=== PATIENT | female | born 1990 | race Caucasian/White ===

== ENCOUNTER 2016-06-18 12:40 | Emergency (ER) | payer BC, OTHER ==
[2016-06-18 12:52] VITALS: BP 161/88
[2016-06-18 12:59] LABS: Urine Bilirubin Negative (NEGATIVE); Urine Ketone Negative (NEGATIVE); Urine Nitrite Negative (NEGATIVE); Urine Protein Negative (NEGATIVE); Urine Specific Gravity 1.025 SP.GR. (1.005-1.010); Urine Urobilinogen Normal (NORMAL)
[2016-06-18 13:03] LABS: Urine Blood 10 /ul (NEGATIVE)
[2016-06-18 13:08] LABS: Urine Appearance Slightly Cloudy; Urine Color Yellow
--- NOTE | 2016-06-18 13:08 | ERNOTE ---
Abdominal HPI - Narrative Date of Service: 06/18/16 - General Chief Complaint: Abdominal Pain Time Seen by Provider: 06/18/16 13:00 Source: patient Exam Limitations: no limitations - Immun/Allergies/Home Medications Immunizatons: IMMUNIZATION HX Immunizations Up to Date Yes History of Influenza Vaccine Yes Hx Pneumococcal Vaccination Yes Allergies/Adverse Reactions: Allergies No Known Allergies Allergy (Verified 06/18/16 12:52) Home Medications: HOME MEDICATIONS Vit#96/Ferrous Fum/FA [ S] 1 tab PO DAILY 09/09/12 [Last Taken 09/07/12 08:00 1 tab] Ibuprofen [Motrin] 800 mg PO Q6H PRN #0 tablet 09/11/12 [Last Taken Unknown] diphenhydrAMINE HCL [Benadryl] 25 mg PO HS PRN #0 capsule 09/11/12 [Last Taken Unknown] Nitrofurantoin/Nitrofuran Mac [Macrobid] 100 mg PO Q12H #20 cap 06/18/16 [Last Taken Unknown] QUEtiapine FUMARATE [Seroquel] 50 mg PO DAILY 06/18/16 [Last Taken Unknown] Venlafaxine HCl 25 mg PO DAILY 06/18/16 [Last Taken Unknown] Vortioxetine Hydrobromide [Trintellix] 20 mg PO DAILY 06/18/16 [Last Taken Unknown] metFORMIN HCL [Fortamet] 1,000 mg PO DAILY 06/18/16 [Last Taken Unknown] - History of Present Illness Narrative: CRAMPING STARTING LAST NIGHT AND THINKS SHE IS NEWLY ON HOME PREG TEST 2-3 DAYS AGO. NO BLEEDING REPORTED. LMP =20 MAY Review of Systems - Review of Systems Constitutional: Present: See HPI Gastrointestinal/Abdominal: Present: abdominal pain - LOWER CRAMPING. IN SUKPRAPUBIC AREA. DENIES UTI SX. All Other Systems: All systems neg except as marked - Patient's Past Medical History Patient History - Medical: No pertinent hx Patient History - Cardiac/Respiratory: No pertinent hx Patient History - Cancer: No Hx of Cancer Patient History - Surgical Procedures: No surgical history Patient History - Other: None LMP (females 10-50): 1 month LMP (Calendar): 05/20/16 - . - Social History Living Situations: home Psych History: Hx of Anxiety, Hx of Depression, Current tx/ever been on anti- depressants or anti-anxiety meds Smoking Status: Never smoker Alcohol Use: none Drug Use: none - Immunizations Immunizations Up to Date: Yes Hx Pneumococcal Vaccination: Yes History of Influenza Vaccine: Yes Physical Exam - Physical Exam General Appearance: Present: wd/wn, alert, no apparent distress - OBESE YOUNG LADY . SL ANXIOUS WITH VS WITH MILDLY ELEVATED BP AND HEART RATE. NO FEVER. Respiratory: Present: no respiratory distress, normal breath sounds, no accessory muscle use, chest nontender, lungs clear Cardiovascular/Chest: Present: regular rate, rhythm, no murmur, normal peripheral pulses Gastrointestinal/Abdominal: Present: normal bowel sounds, soft, no organomegaly , tenderness - IN SUPRAPUBIC AREA. Back Exam: Present: no vertebral tenderness Neurological Exam: Present: alert, oriented Skin Exam: Present: normal color, warm/dry ED Progress - Results and Orders Patient's Lab Results:: I have reviewed the patient's lab results. - URINE WITH + LEUKO AND INCREASED BACT THOUGH SHE ALSO SHOWS INCREASED EPIS, A CULTURE IS PENDING. Results and Orders: URINE SHOWS UTI LIKELY , SPILLING GLUC AND QUANT HCG ONLY 661 - Vital Signs Patient's Vital Signs:: I have reviewed the patient's vital signs. Vital Signs: Vital Signs 06/18/16 12:44 Temperature 36.6 C Pulse Rate 109 H Respiratory 14 Rate Blood Pressure 161/88 O2 Sat by Pulse 100 Oximetry - Progress/Reassessment Chief Complaint: Abdominal Pain Plan - Plan Plan: D/W DR SNEED AND HE WILL FOLLOWUP ON SUNDAY AND WANTS A REPEAT QUANT. HCG. Departure - Departure Clinical Impression: Suprapubic cramping, and not yet delivered in first trimester, Acute lower urinary tract infection Disposition: Home self-care Condition: Good Instructions: Care, and Urinary Tract Infection Additional Instructions: START THE MACRODANTIN DIRECTED. IT IS OK TO USE TYLENOL FOR CRAMPING. GET A REPEAT QUANTITATIVE HCG DONE AN OUTPATIENT ON SUNDAY AND APPOINTMENT TO RECHECK WITH YOUR OB DOCTOR. RETURN TO THE ER IF WORSE. Referrals: Tho Sneed DO [Primary Care Provider] - Prescriptions: Nitrofurantoin/Nitrofuran Mac [Macrobid] 100 mg PO Q12H #20 cap
[2016-06-18 13:09] LABS: Urine Bacteria 2+; Urine RBC 0-5 /hpf (0-5)
--- OUTSIDE RECORDS SUMMARY | 2016-06-18 13:12 | XMS REPORT | Continuity of Care Document ---
:1990 Author Organization [facility] ([facility]) Address [place] [address] Phone [phone] Care Team Providers Name Role Phone Marysol Savage Lpoez Primary Care Provider [phone] Source Comments This disclosure is being made pursuant to the Care Everywhere program, applicable federal and state laws, and may not contain all informaitonavailable regarding this patient.[facility] ([facility]) Active Allergies and Adverse Reactions Allergen Noted Date Severity Reactions Comments No Known Drug Allergies 06/02/2008 Current Medications Prescription Sig. Disp. Refills Start Date End Date Status NORGESTIMATE-ETHINYL take by mouth Active ESTRADIOL (ORTHO daily. TRI-CYCLEN, 28, PO) atenolol (TENORMIN) 25 Take 25 mg by mouth Active mg tablet daily. ACETAMINOPHEN (TYLENOL Take by mouth as Active PO) needed. BUPROPION HCL Take 1 Tab by mouth Active (WELLBUTRIN PO) daily. SERTRALINE HCL (ZOLOFT Take 150 mg by mouth Active PO) daily. 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 Social History Tobacco Use Types Packs/Day Years Used Date Never Smoker Alcohol Use Drinks/Week oz/Week Comments No used to drink Last Filed Vital Signs Vital Sign Reading Time Taken Blood Pressure 145/85 12/01/2013 12:57 PM CDT Pulse 78 12/01/2013 12:57 PM CDT Temperature 36.7 C (98.1 F) 12/01/2013 12:57 PM CDT Respiratory Rate 14 01/11/2010 12:05 PM [employer] Height 1.575 m (5' 2.01") 12/01/2013 12:57 PM CDT Weight 92.08 kg (203 lb) 12/01/2013 12:57 PM CDT Body Mass Index 37.12 12/01/2013 12:57 PM CDT Oxygen Saturation - - Plan of Care Health Maintenance Due Date Last Done Comments Hepatitis B Vaccine (1 of 3 - Primary Series) 1990 HPV Vaccine (1 of 3 - Female/Unknown 3 Dose Series) 08/09/2002 Tdap Vaccine 08/09/2002 Cervical Cancer Screening 08/09/2009 Lipid Disorder Screening 08/09/2009 MMR Vaccine 08/09/2009 Td Vaccine 08/09/2009 Varicella Vaccine (1 of 2 - Adult - No Evidence of 08/09/2009 Immunity) Influenza Vaccine: Seasonal (#1) 09/06/2015 Results from Last 3 Months Not on file
== END 2016-06-18 14:33 | disposition home or self-care (01) ==
LOC: ER 12:40
DX: R10.33 Periumbilical pain (principal); Z33.1 Pregnant state, incidental; O23.41 Unspecified infection of urinary tract in pregnancy, first trimester

== ENCOUNTER 2016-06-29 11:51 | Emergency (ER) | payer BC ==
[2016-06-29 14:04] LABS: Hematocrit 39.7 % (37.0-47.0); Hemoglobin 13.8 gm/dL (12.5-16.0); Mean Cell Volume 85.2 fl (78-100); Mean Corpuscular Hemoglobin 29.6 pg (27-31); Mean Corpuscular Hgb Conc 34.8 g/dl (32-36); Mean Platelet Volume 8.8 fl (6.0-9.5); Neutrophil # 7.3 K/mm3 (1.3-6.0); Neutrophil % 62.6 % (42-75.0); Platelet Count 419 K/mm3 (150-450); Red Blood Count 4.66 M/mm3 (4.2-5.4); Red Cell Distribution Width 12.2 % (11.5-14.0); White Blood Count 11.6 K/mm3 (4.0-10.5)
--- NOTE | 2016-06-29 14:25 | ERNOTE ---
ER Female HPI Date of Service: 06/29/16 Stated Complaint: POSSIBLE MISCARRIAGE Presenting Symptoms: vaginal bleeding Time Seen by Provider: 06/29/16 14:00 Source: patient, RN notes reviewed, past records Exam Limitations: no limitations Immunizations: IMMUNIZATION HX Immunizations Up to Date Yes History of Influenza Vaccine Yes Hx Pneumococcal Vaccination Yes Allergies/Adverse Reactions: Allergies No Known Allergies Allergy (Verified 06/29/16 12:16) Home Medications: HOME MEDICATIONS Vit#96/Ferrous Fum/FA [ S] 1 tab PO DAILY 09/09/12 [Last Taken 09/07/12 08:00 1 tab] diphenhydrAMINE HCL [Benadryl] 25 mg PO HS PRN #0 capsule 09/11/12 [Last Taken Unknown] QUEtiapine FUMARATE [Seroquel] 50 mg PO DAILY 06/18/16 [Last Taken Unknown] Venlafaxine HCl 25 mg PO DAILY 06/18/16 [Last Taken Unknown] metFORMIN HCL [Fortamet] 1,000 mg PO DAILY 06/18/16 [Last Taken Unknown] - History of Present Illness Narrative: Cari is a 25-year-old female ambulatory to the emergency department for vaginal bleeding and cramping during the first trimester . Her last menstrual period was May 20 of this year. She was seen here approximately 2 weeks ago and was found to be . A quantitative hCG level was repeated 2 days later and had doubled. She reports that she has had light pink spotting off and on, but her bleeding has increased since she had a Pap smear yesterday. This was done by her primary care provider. She is also being treated for a urinary tract infection with an unknown antibiotic, but it sounds as though this is cephalexin. She has also been using Monistat for a vaginal yeast infection. She was tested for sexually transmitted infections yesterday as she has had more than one sex partner in the past 3 months. She is a 5 para 2. She is Rh+. She had bright red bleeding this morning and passed a moderate sized clot. Her bleeding has currently returned to light pink spotting. She has not been sexually active recently. She reports intermittent crampy pain in the pelvic region and lower back that feels similar to menstrual cramps. She has her first OB appointment on July 11. Date (Duration): 06/29/16 Timing: Present: intermittent Quality: Present: moderate, cramping Onset Location: Present: RLQ, LLQ, suprapubic Radiation: Present: back Activities at Onset: Present: none Prior Abdominal Problems: Present: similar symptoms Associated Symptoms: Present: nausea, vomiting. Absent: fever/chills, diaphoresis Prior Treatment: Present: recently seen, treated by physician, currently on antibiotics Review of Systems - Review of Systems Constitutional: Present: recent illness. Absent: fever, chills, malaise EYE: Present: no symptoms reported ENT: Present: no symptoms reported Respiratory: Absent: shortness of breath, cough Cardiology: Absent: chest pain, syncope Gastrointestinal/Abdominal: Present: nausea, vomiting. Absent: diarrhea, constipation, eating less, drinking less Genitourinary: Present: See HPI Musculoskeletal: Present: See HPI Skin: Absent: rash, lesions Neurological: Absent: headache, dizziness/light-headedness, weakness Endocrine: Present: no symptoms reported Hematologic/Lymphatic: Absent: easy bruising, easy bleeding Psych: Present: no symptoms reported - Patient's Past Medical History Patient History - Medical: Anemia, Migraines, Other - Gestational diabetes Patient History - Cardiac/Respiratory: Asthma, Hypertension Patient History - Cancer: No Hx of Cancer Patient History - Surgical Procedures: No surgical history Patient History - Other: None LMP (Calendar): 05/20/16 - . - Social History Living Situations: home Psych History: Hx of Anxiety, Hx of Depression, Current tx/ever been on anti- depressants or anti-anxiety meds Smoking Status: Never smoker Alcohol Use: none Drug Use: none - Immunizations Immunizations Up to Date: Yes Hx Pneumococcal Vaccination: Yes History of Influenza Vaccine: Yes Physical Exam - Physical Exam General Appearance: Present: wd/wn, alert, no apparent distress Neck: Present: normal inspection, nontender, supple, full range of motion Respiratory: Present: no respiratory distress, normal breath sounds, no accessory muscle use, lungs clear Cardiovascular/Chest: Present: regular rate, rhythm, no murmur, normal peripheral pulses Gastrointestinal/Abdominal: Present: normal bowel sounds, nondistended - obese, soft, tenderness - right and left lower quads, more severe in suprapubic region. Absent: guarding Back Exam: Present: normal inspection, normal range of motion, no CVA tenderness , no vertebral tenderness Extremity Exam: Present: normal inspection, normal range of motion, no edema Neurological Exam: Present: alert, oriented, normal mood/affect, no motor/ sensory deficits Skin Exam: Present: normal color, warm/dry ED Progress - Results and Orders Patient's Lab Results:: I have reviewed the patient's lab results. - Vital Signs Patient's Vital Signs:: I have reviewed the patient's vital signs. Vital Signs: Vital Signs 06/29/16 12:11 Temperature 37.0 C Pulse Rate 91 Respiratory 16 Rate Blood Pressure 143/91 O2 Sat by Pulse 97 Oximetry - CT/Ultrasound CT/Ultrasound Narrative: Transabdominal/transvaginal US shows a single live intrauterine - Progress/Reassessment Chief Complaint: Abdominal Pain Progress:: Unchanged Departure Clinical Impression: First trimester bleeding - Departure Disposition: Home Follow Up Needed Condition: Good Instructions: Vaginal Bleeding During , First Trimester, Form - Excuse from Work, School, or Physical Activity Additional Instructions: Continue your current medications See Dr. Sneed as scheduled Pelvic rest Return for heavy bleeding/clotting as discussed Referrals: Tho Sneed DO [Staff Physician] -
--- OUTSIDE RECORDS SUMMARY | 2016-06-29 14:33 | XMS REPORT | Continuity of Care Document ---
:1990 Author Organization [facility] ([facility]) Address [place] [address] Phone [phone] Care Team Providers Name Role Phone Marysol Savage Lopez Primary Care Provider [phone] Source Comments This disclosure is being made pursuant to the Care Everywhere program, applicable federal and state laws, and may not contain all informaitonavailable regarding this patient.[facility] ([facility]) Active Allergies and Adverse Reactions Allergen [...] CDT Respiratory Rate 14 01/11/2010 12:05 PM [employer] Height 1.575 m (5' 2.01") 12/01/2013 12:57 [...]
[2016-06-29 16:03] VITALS: BP 147/94
== END 2016-06-29 15:54 | disposition home or self-care (01) ==
LOC: ER 11:51
DX: O20.9 Hemorrhage in early pregnancy, unspecified (principal); O24.415 Gestational diabetes mellitus in pregnancy, controlled by oral hypoglycemic drugs; F41.9 Anxiety disorder, unspecified; F32.9 Major depressive disorder, single episode, unspecified; Z3A.00 Weeks of gestation of pregnancy not specified